=== PATIENT | female | born 1940 | race Caucasian/White ===

== ENCOUNTER → 2018-09-15 | Outpatient (CLI) | payer MEDICARE, OTHER ==
[~2018-09-15] MED LIST: AMLO10TA8 PO; DOCU-109 PO; FLUO10CA7 PO; HYDR-3164 PO; LABE100T5 PO; LEVO150T5 PO; LOSA1TAB25 PO; METH-38 PO; MULT-735 PO; PANT20TA2 PO; RANI300C PO; SIMV40TA3 PO
== END | disposition home or self-care (01) ==
LOC: SURGPAT 12:17
PROVIDERS: ATTEND Neurological Surgery
DX: M43.16 Spondylolisthesis, lumbar region (principal); M48.061 Spinal stenosis, lumbar region without neurogenic claudication; M54.16 Radiculopathy, lumbar region
CPT/HCPCS: 36415; 87641

== ENCOUNTER 2018-09-30 09:47 | Day surgery (SDC) | payer OTHER ==
--- NOTE | 2018-09-29 10:51 | PREOP HP ---
DATE OF SERVICE: 09/30/2018. DATE OF SURGERY: 09/30/2018. HISTORY OF PRESENT ILLNESS: The patient is a 78-year-old who is having difficulty with low back pain and left greater than right posterior thigh and leg pain. There is also left anterior thigh pain. The problem has been present for years, but over the last few years, the pain has been increasing significantly. She rates her pain currently as a 5/10. Standing and walking markedly increases her pain. She says sitting and/or decrease her activity helped her. She uses ice and heat frequently. She has had chiropractic treatment as well as physical therapy. Epidural steroid injections were done quite recently last month and without benefit. She does not notice specific weakness in her legs. She says that when she walks distances her legs can become severely painful. PAST MEDICAL HISTORY: Artificial heart valve, artificial right knee, heart trouble and disease, hypertension, shingles, stomach and intestinal disease, thyroid disease. PAST SURGICAL HISTORY: Right knee replacement in 1992, 1973, hysterectomy in 1993. FAMILY HISTORY: Cancer and heart problems. SOCIAL HISTORY: Retired. . Exercises monthly. Denies substance abuse. Denies tobacco use currently. Drinks coffee and tea daily. ALLERGIES: SULFA, MERCURY, PENICILLIN. CURRENT MEDICATIONS: Albuterol, amlodipine, aspirin, CoQ10, fluoxetine, labetalol, losartan, potassium, Neurontin, ProAir HFA, probiotic, ranitidine, simvastatin, Synthroid, Theragran, Prozac, ibuprofen, Tylenol. REVIEW OF SYSTEMS: A 12-point review of systems was obtained and is noncontributory except for that mentioned above. PHYSICAL EXAMINATION: NEUROSURGERY EXAMINATION: GENERAL APPEARANCE: Alert, pleasant, no acute distress. HEAD: Normocephalic and atraumatic. SKIN: Warm and dry. MUSCULOSKELETAL: Lumbar paraspinal muscle bulk is normal, restricted range of motion of the lumbar spine, [id number] tenderness of lower lumbar spine with palpation, normal range of motion of the lower extremities bilaterally. EXTREMITIES: No clubbing, cyanosis or edema. NEUROLOGIC: Alert and oriented x3. Normal recent and remote memory. Strength 5/5 in bilateral lower extremities. Sensory is intact to light touch in bilateral lower extremities. Reflexes were present and symmetric in the lower extremities bilaterally, negative straight leg raising bilaterally. Normal gait. IMAGING: I reviewed a lumbar MRI scan. On that study, there is severe stenosis at L4-L5 and moderately severe stenosis at L5-S1. There is also grade 1 anterolisthesis of L4 and L5. I also reviewed his cervical MRI scan. She does have her reversal of normal cervical lordosis and moderately severe cervical spondylosis. There is a moderate spinal stenosis present at C5-C6. ASSESSMENT/ PLAN: At this point, I feel the primary problem is related to severe stenosis at L4-L5 and L5-S1. She has no interest in consideration for an instrumented lumbar fusion. The vast majority of her pain, although bilateral, is on the left side. I recommended direct left laminectomies at L4-L5 and L5-S1 to decompress the canal and nerve roots. I spoke with her about surgery and the risks. I explained that she could develop further problems with spondylolisthesis and potentially require an instrumented fusion. I discussed the risk of the operation including dural and nerve root injury in this case because of the severity of stenosis. I spoke about the expected postoperative course. She understands. She would like to go ahead. We will make the arrangements. MEREDITH LOPEZ MD DR: RENETTA/dave JOB#: [id number] / [id number] ANGY
[~2018-09-30] VITALS: Ht 149.9 cm; Wt 62.6 kg
[~2018-09-30 09:47] MED LIST changes: +0.9 % SODIUM CHLORIDE 20 ML VIAL. IJ ONE; +BACITRACIN 50,000 UNIT in IV NORMAL SALINE 1000ML BAG 1,000 ML IRR ONE; +BUPIVAC MPF-EPI 0.5%-1:200000 30 ML VIAL. ONE; -DOCU-109 PO; +GELATIN SPONGE SIZE 100. ONE; -HYDR-3164 PO; +HYDROmorphone 2 MG/ML VIAL IV PRN; +IV RINGERS,LACTATED 1000ML 1,000 ML IV SCH; +KETOROLAC 60 MG/2 ML INJ FOR OR. ONE; +LIDOCAINE 1% PF 2 ML VIAL. ID PRN; +LIDOCAINE 2% PF 5 ML VIAL. ONE; -METH-38 PO; +MORPHINE SULFATE 2 MG/ML VIAL. IV PRN; +ONDANSETRON PF 4 MG/2 ML VIAL. IV PRN; +PROCHLORPERAZINE 10 MG/2 ML VIAL. IV PRN; +PROPOFOL 20 ML IV ONE; +ROCURONIUM 50 MG/5 ML VIAL. ONE; +THROMBIN TOPICAL 20,000 UNIT SPRAY.SYRN KIT TP ONE; +VANCOMYCIN 1GM IVPB FOR OMNI 250 ML IV PRN; +fentaNYL PF VIAL 100 MCG/2 ML VIAL IV PRN; +fentaNYL PF VIAL 100 MCG/2 ML VIAL ONE
[2018-09-30] MEDS ORDERED: REMIFENTANIL 2 MG VIAL. IV ONE (09:52)
[2018-09-30] MEDS ORDERED: PROPOFOL 50 ML IV ONE ×3 (09:53→14:11)
[2018-09-30] MEDS ORDERED: DESFLURANE > 120 MINUTES IH ONE (11:59)
[2018-09-30] MEDS ORDERED: DEXAMETHASONE SOD PHOS 20 MG/5 ML VIAL. ONE (11:59)
[2018-09-30] MEDS ORDERED: PHENYLEPHRINE in 0.9% NACL PF 1 MG/10 ML SYRINGE. IV ONE (12:22)
[2018-09-30] MEDS ORDERED: ONDANSETRON PF 4 MG/2 ML VIAL. ONE (12:31)
[2018-09-30] MEDS ORDERED: PHENYLEPHRINE 10 MG/ML VIAL. ONE (13:05)
--- NOTE | 2018-09-30 13:50 | DISCH ---
DISCHARGE INSTRUCTIONS Condition on Discharge Condition on Discharge: Stable Activity After Discharge Activity Instructions for Disc: Activity as tolerated, Avoid exertion Other activity instructions: no driving for a week Bathing Instructions: Shower-keep dressing dry Lifting Instructions after Dis: No heavy lifting, No pulling or pushing, Do not lift >10 pounds Diet after Discharge Additional Diet Restrictions: resume home diet Wound Incision Care Wound/Incision Care: Ice to area for comfort Other wound/incision instructi: may remove dressing in 48 hrs if dry then may shower, no soaking Contacting the after DC Call your doctor for: Concerns you may have Follow-Up Follow up with: Dr. Lopez's nurse in 2 weeks [phone] MEREDITH LOPEZ MD Sep 30, 2018 13:50
[2018-09-30] MEDS: fentaNYL PF VIAL 100 MCG/2 ML VIAL IV PRN ×2 (15:35→16:08)
[2018-09-30] MEDS ORDERED: METH-38 PO (15:51)
[2018-09-30] MEDS ORDERED: DOCU-109 PO (15:51)
[2018-09-30] MEDS ORDERED: HYDR-3164 PO (15:51)
--- NOTE | 2018-09-30 16:04 | OP ---
DATE OF SURGERY: 09/30/2018 PREOPERATIVE DIAGNOSIS: Severe lumbar spinal stenosis, L4-L5 and L5-S1 with predominantly left lumbar radiculopathy. POSTOPERATIVE DIAGNOSIS: Severe lumbar spinal stenosis, L4-L5 and L5-S1 with predominantly left lumbar radiculopathy. OPERATION PERFORMED: Left direct laminectomy, L4-L5 and L5-S1 with removal of very large, thickened, hypertrophic ligamentum flavum at L4-L5 contributing to the severe stenosis and L5-S1 with removal of thickened ligament plus lumbar microdiscectomy. SURGEON: Sami Lopez M.D. RESERVOIR ENGINEERING CONSULTANT: SAFIA Clemons who assisted with the exposure and the microdecompression and microdiscectomy. Surgery was also employed EMG monitoring, SSEP monitoring, fluoroscopy, microscopic dissection. OPERATIVE INDICATIONS: The patient is a pleasant 78-year-old woman who developed severe intractable back and left greater than right leg pain and was found to have the above-mentioned findings on imaging studies. Because of her spondylolisthesis at L5-S1 and my reluctance to stabilize her, this precipitated the need for an instrumented lumbar fusion. I felt that a left direct laminectomy to remove the very large hypertrophic ligament emanating from the left side at L4-L5 would offer her significant relief. She also had moderately severe stenosis at L5-S1, again predominantly from very thickened ligamentum flavum and disc bulging and I recommended a decompression at that level as well from the left side. She understood the surgery and the risks, she understood the technique of the operation. She wished to go ahead. DESCRIPTION OF PROCEDURE: Following general endotracheal anesthesia, the patient was positioned prone on the Rustam table. Lumbar region prepped and draped in standard fashion. GEORGE hose and AV impulse boots were applied for DVT prophylaxis. Microscope was draped. Fluoroscopy was draped and brought into field. Monitoring was established. Vancomycin 1 gram was given prior to surgery. Using fluoroscopic guidance, an incision was made extending from mid L4 to the proportion of S1 and I dissected down the skin and subcutaneous tissue, reflected the paraspinal muscles, placed a [place] micro disc retractor. I brought in the microscope and then using the high-speed air drill, I burred down a generous laminotomy at L5-S1 and then began to peel away the thickened ligamentum flavum and peeled back the large hypertrophic material markedly compressing the dura. The disc was bulging posteriorly and I incised the annulus and ligament and performed a discectomy with pituitary rongeurs and this region became very well decompressed. I did use a bipolar cautery as well as bone wax. There were no difficulties. I then moved up to L4-L5 in a similar fashion and drilled a generous hemilaminotomy both superiorly and inferiorly. The thickened ligament was partially calcified and thickened and densely scarred to the underlying dura and I both superiorly and inferiorly began freeing up the dura from the ligament and then trimming the ligament with the 2 and 2.5 Kerrisons and then, I began to work and free up the very large protruding thickened ligament, which was markedly compressing the central canal and I was able to gently fold and pull this material back and remove it piecemeal. I did perform a generous foraminotomy. I decompressed the entire region well. There was a large divot where the dura had been markedly compressed and shifted midline and after the dura had been released, I went and palpated the disc, which was firm, but in view of the spondylolisthesis, I felt in addition that a discectomy here may destabilize her further and I did not wish to have that problem. I felt that the dura was very well decompressed. I irrigated copiously with antibiotic solution. Hemostasis was excellent. I closed the wound then with absorbable sutures and the skin was closed with 4-0 subcuticular stitch. I did coagulate a few bleeders in the muscle after I removed the retractor. The wound was closed in layers. The surgery went very well. Monitoring improved with regard to her SSEP with the decompression. Again, I was quite pleased with the surgery. SAMI LOPEZ MD DR: RENETTA/dave JOB#: [id number] / [id number] ANGY
[2018-09-30] MEDS ORDERED: HYDROcodone/APAP 5/325MG 1 TAB TABLET PO ONE ×2 (16:30)
[2018-09-30 17:20] VITALS: BP 145/77
--- NOTE | 2018-10-02 17:10 | PATHOLOGY ---
[facility] Accession Number: [id number] . 01 Material submitted: . LUMBAR DECOMPRESSION AND DISC . 01 Clinical history: . Lumbar stenosis, spondylolisthesis, low back pain, radiculopathy . 02 Diagnosis: Segments of fibrocartilaginous, synovial, adipose, and skeletal muscle tissue and bone, lumbar decompression and disc: - Degenerative changes of fibrocartilaginous tissue. (JPM:moving consultant; 10/02/2018) MBR/10/02/2018 . 02 Comment: There is no evidence of an acute inflammatory process or malignancy. (JPM:moving consultant; 10/02/2018) . 02 Electronically signed: . Frank East MD, Pathologist NPI- [id number] . 01 Gross description: . The specimen is received in formalin, labeled "Guillermina Israel, lumbar decompression and disc" and consists of multiple fragments of yellow-pink soft tissue and bone measuring 4.8 x 4.0 x 0.9 cm in aggregate. A c s s representative portion is submitted in A1 following decalcification. (SDY; 10/01/2018) SYU/SYU . 02 Pathologist provided ICD-10: M51.36 . 02 CPT . 842257, [id number] Specimen Comment: A courtesy copy of this report has been sent to Specimen Comment: [phone], . Specimen Comment: Report sent to / DR LOTT Performed at: 01 [facility] [address], [place] [id number] MD Dereck Cheung MD Phone: [phone] Performed at: 02 [facility] [address], [place] [id number] MD Frank East MD Phone: [phone]
== END 2018-09-30 17:45 | disposition home or self-care (01) ==
LOC: SURG 09:47 → EDUNIT# 11:30 → SURG 17:45
PROVIDERS: ATTEND Neurological Surgery
DX: M54.16 Radiculopathy, lumbar region (principal); M48.062 Spinal stenosis, lumbar region with neurogenic claudication; I10 Essential (primary) hypertension; Z90.710 Acquired absence of both cervix and uterus; Z88.0 Allergy status to penicillin; Z88.1 Allergy status to other antibiotic agents; Z79.82 Long term (current) use of aspirin; Z79.899 Other long term (current) drug therapy; Z96.651 Presence of right artificial knee joint; Z98.890 Other specified postprocedural states
CPT/HCPCS: 63047; 63048; 76000; 97161; A7015; J0780; J1100; J1885; J2001; J2270; J2370; J2405; J2704; J3010; J3370; J3490; J7030; J7120; 88304; 88311